=== PATIENT | female | born 1965 | race Caucasian/White ===

== ENCOUNTER → 2018-03-24 | Outpatient (CLI) | payer BC | LOC: FIMAGING 12:14 → EDSTATUS 12:18 | PROVIDERS: ATTEND Internal Medicine | DX: R60.9 Edema, unspecified (principal); R21 Rash and other nonspecific skin eruption ==

== ENCOUNTER → 2018-03-24 | Outpatient (CLI) | payer BC | LOC: FIMAGING 11:23 | PROVIDERS: ATTEND Internal Medicine | DX: R60.9 Edema, unspecified (principal) ==